=== PATIENT | female | born 1985 | race Caucasian/White ===

== ENCOUNTER 2019-08-26 10:26 | Emergency (ER) | payer OTHER ==
[~2019-08-26] VITALS: Ht 162.6 cm; Wt 54.4 kg
[2019-08-26 10:46] VITALS: BP_SYST 142
[2019-08-26] MEDS ORDERED: NACL 0.9% 1,000 ML IV ONE (12:12)
[2019-08-26 12:52] LABS: BASOPHILS # (AUTO) 0.1 K/uL (0.0-0.2); EOSINOPHILS % (AUTO) 0.6 % (0.0-4.0); HEMATOCRIT 39.7 % (36-48); HEMOGLOBIN 13.9 g/dL (12.0-16.0); LYMPHOCYTES # (AUTO) 1.2 K/uL (1.0-5.5); LYMPHOCYTES % (AUTO) 22.3 % (20.5-51.5); MEAN CORPUSCULAR HEMOGLOBIN 34 pg (27-31); MEAN CORPUSCULAR HGB CONC 35 % (32-36); MEAN CORPUSCULAR VOLUME 98 fL (79.0-98.0); MONOCYTES # (AUTO) 0.4 K/uL (0.0-1.0); MONOCYTES % (AUTO) 7.1 % (1.7-9.3); NEUTROPHILS # (AUTO) 3.8 K/uL (1.8-7.7); PLATELET COUNT (AUTO) 240 K/uL (130-430); RED BLOOD CELL COUNT(AUTO) 4.07 MIL/uL (4.2-6.2); RED CELL DISTRIBUTION WIDTH 12.6 % (9.0-15.0); WHITE BLOOD COUNT (AUTO) 5.4 K/uL (4.8-10.8)
[2019-08-26 12:53] LABS: BILIRUBIN,URINE NEGATIVE (NEGATIVE); BLOOD, URINE 3+ (NEGATIVE); CLARITY/URINE CLEAR (CLEAR); COLOR,URINE YELLOW (YELLOW); GLUCOSE,URINE NEGATIVE (NEGATIVE); KETONES,URINE NEGATIVE (NEGATIVE); LEUKOCYTE ESTERASE ,URINE NEGATIVE (NEGATIVE); NITRITE, URINE NEGATIVE (NEGATIVE); PROTEIN URINE NEGATIVE (NEGATIVE); UROBILINOGEN,URINE 0.2 (0.2-1.0)
--- NOTE | 2019-08-26 12:54 | NUR ---
Patient to ER bed 7 to gown for evaluation. Side rails up. Report given to KIN RAI.
[2019-08-26 13:03] LABS: CALCIUM 8.7 mg/dL (8.4-11.0); CREATININE 0.65 mg/dL (0.55-1.30)
[2019-08-26 13:06] LABS: BACTERIA,URINE FEW /HPF (None Seen); WBC,URINE 0-3 /HPF (0-3)
--- NOTE | 2019-08-26 13:10 | NUR ---
Patient presented to ER with vaginal bleeding and cramping. Patient A&Ox4, afebrile, skin pink and warm, cap refill <3, ambulatory to ER, pain 4/10, denies N/V/D. Patient states she is 5 weeks and experiencing cramping x2 days and vaginal bleeding since this am. Patient denies other health HX. Patient states she does mot have [employer]G/[employer] at this time.
--- NOTE | 2019-08-26 13:15 | NUR ---
ER Dr. Herrera at bedside examining patient.
[2019-08-26 13:16] LABS: ALBUMIN 4.1 g/dL (3.4-4.8); TOTAL BILIRUBIN 0.4 mg/dL (0.0-1.0)
--- NOTE | 2019-08-26 14:35 | NUR ---
ER Dr. GUIDO at bedside examining patient.
--- NOTE | 2019-08-26 15:00 | NUR ---
Report to Barbie RAI
--- NOTE | 2019-08-26 15:30 | NUR ---
Rhogam iVP administered to patient. Patient tolerated well. Will continue to monitor.
[2019-08-26 15:53] VITALS: BP_SYST 132
--- NOTE | 2019-08-26 15:53 | NUR ---
Patient given written and verbal discharge instructions and verbalizes understanding. ER MD discussed with patient the results and treatment provided. Patient in stable condition. ID arm band removed. IV catheter removed intact and dressing applied, no active bleeding. No Rx given. Patient educated on pain management and to follow up with OBGyn x 2 days. Pain Scale 0/10 Opportunity for questions provided and answered. Medication side effect fact sheet provided.
== END 2019-08-26 15:53 | disposition home or self-care (01) ==
LOC: SED 10:26
DX: O03.9 Complete or unspecified spontaneous abortion without complication (principal)
CPT/HCPCS: 36415; 76801; 76817; 80053; 81000; 84702; 85025; 86886; 86900; 86901; 96372; 99284; J2790; J7030